=== PATIENT | female | born 1995 | race Caucasian/White ===

== ENCOUNTER 2016-10-04 23:52 | Emergency (ER) | payer OTHER ==
[~2016-10-04] VITALS: Ht 172.7 cm; Wt 51.9 kg
[2016-10-04 23:54] VITALS: BP 114/71; PULSE 60; RESP 14; TEMP 98; O2SAT 100
--- NOTE | 2016-10-05 01:10 | PD ---
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 Patient states last period was normal for her. Patient denies being sexually active and states that she has not had sexual intercourse since November when her boyfriend left to go out of town. Patient denies fever chills nausea vomiting flank pain generalized abdominal pain dysuria frequency urgency but does complain of generalized weakness. Patient states that she has been once in the past. Patient has not had a Pap smear 6 years. Patient was recently seen by her primary care provider and was told that she has anemia. Patient is supposed to take iron daily. Patient does not complain of any respiratory illness symptoms other than approximately 2 weeks ago she did have an ear infection that resolved spontaneously without being evaluated by physician or antibiotic use. Patient rates pelvic discomfort 0/10 in intensity. PFSH Past Medical History Narrative Medical Anxiety depression anemia Ab0 alcohol use marijuana use nursing notes reviewed Anxiety: Yes Depression: Yes Diminished Hearing: No Immunizations Current: Yes Tetanus Vaccination: > 5 Years Influenza Vaccination: No ?: Not LMP: last week : 1 Para: 1 Social History Alcohol Use: Yes (occ) Tobacco Use: No Substance Use: Yes (marijuana) Allergies-Medications (Allergen,Severity, Reaction): Coded Allergies: Sulfa (Verified Allergy, Severe, Rash, 10/05/16) Uncoded Allergies: LANOCAINE (Adverse Reaction, Severe, Hives, 06/11/15) REACTION TO ANTI ITCH CREAM. Reported Meds & Prescriptions Reported Meds & Active Scripts Active No Active Prescriptions or Reported Medications Review of Systems Except as stated in HPI: all other systems reviewed are Neg General / Constitutional: No: Fever, Chills HENT: No: Congestion Cardiovascular: No: Chest Pain or Discomfort Respiratory: No: Shortness of Breath Gastrointestinal: No: Abdominal Pain Genitourinary: Positive: Discharge, No: Dysuria, Pelvic Pain, Vaginal Bleeding Musculoskeletal: No: Myalgias, Arthralgias Skin: No Rash Neurologic: Positive: Weakness Psychiatric: No: Anxiety Hematologic/Lymphatic: Positive: Easy Bruising Physical Exam Narrative GENERAL: Well-developed well-nourished female in no acute distress no respiratory distress SKIN: Warm and dry. HEAD: Normocephalic. EYES: No scleral icterus. No injection or drainage. NECK: Supple, trachea midline. No JVD or lymphadenopathy. CARDIOVASCULAR: Regular rate and rhythm without murmurs, gallops, or rubs. RESPIRATORY: Breath sounds equal bilaterally. No accessory muscle use. GASTROINTESTINAL: Abdomen soft, non-tender, nondistended. Pelvic exam: Normal external exam no redness induration or lesions; speculum exam white yellow discharge no blood no clots no tissue cervical os closed and no retained foreign body; bimanual exam no cervical motion tenderness no adnexal mass or tenderness and no palpable foreign body. MUSCULOSKELETAL: No cyanosis, or edema. BACK: Nontender without obvious deformity. No CVA tenderness. Data Data Last Documented VS Vital Signs Date Time Temp Pulse Resp B/P Pulse Ox O2 Delivery O2 Flow Rate FiO2 10/04/16 23:54 98.0 60 14 114/71 100 Orders Wet Prep Profile (10/05/16 00:59) Ed Urine Pregnancytest Poc (10/05/16 00:59) Urinalysis - C+S If Indicated (10/05/16 00:59) Gc And Chlamydia Pcr (10/05/16 00:59) Labs Laboratory Tests Test 10/05/16 01:00 Urine Color YELLOW Urine Turbidity CLEAR Urine pH 7.5 Urine Specific [place] 1.020 Urine Protein NEG mg/dL Urine Glucose (UA) NEG mg/dL Urine Ketones NEG mg/dL Urine Occult Blood TRACE Urine Nitrite NEG Urine Bilirubin NEG Urine Leukocyte Esterase TRACE Urine RBC 0-3 /hpf Urine WBC 3-5 /hpf Urine Squamous Epithelial 6-8 /hpf Cells Urine Bacteria OCC /hpf Microscopic Urinalysis Comment CULT NOT INDICATED Clue Cells (Wet Prep) NONE SEEN Vaginal Trichomonas (Wet Prep) NONE SEEN Vaginal Yeast (Wet Prep) NONE SEEN MDM Medical Decision Making Medical Screen Exam Complete: Yes Emergency Medical Condition: Yes Medical Record Reviewed: Yes Interpretation(s) UA: 6-8 squamous epithelial cells; culture not indicated Wet prepped: Negative POC hCG: Negative Differential Diagnosis UTI, , STI, PID Narrative Course On pelvic exam there was no palpable or visualized foreign body specimens collected and sent for resulting; urinalysis collected and [id number] hCG ordered Urinalysis clean catch shows evidence of 6-8 squamous epithelial cells trace leukocytes and occasional bacteria culture not indicated. Wet prep is negative. Patient stable for outpatient management and follow-up with her primary care provider. Patient has history of anemia has been encouraged by her primary care provider to start iron replacement which she has not done and she is encouraged again to start supplementing with iron due to her anemia which is most likely the source of for generalized weakness. Patient did not want any blood work checked. Urine test is negative. 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
[2016-10-05 01:13] LABS: BLOOD, URINE TRACE (NEG); GLUCOSE,URINE NEG (NEG); KETONE, URINE NEG (NEG); NITRITE,URINE NEG (NEG); PH, URINE 7.5 (5.0-8.5)
[2016-10-05 01:15] LABS: URINE COLOR YELLOW (YELLW/STRAW)
[2016-10-05 01:20] LABS: BACTERIA, URINE OCC /hpf; COMMENT (UR) CULT NOT INDICATED; CULTURE IF INDICATED CULT NOT INDICATED; RBC, URINE 0-3 /hpf (0-3)
[2016-10-05 13:29] LABS: CHLAMYDIA PCR NOT DETECTED (NOT DETECT); NEISSERIA PCR NOT DETECTED (NOT DETECT)
== END 2016-10-05 02:00 | disposition home or self-care (01) ==
LOC: PHED 23:52
DX: R53.1 Weakness (principal)
CPT/HCPCS: 81001; 84703; 87210; 87491; 87591; 99284